=== PATIENT | male | born 1950 | race Two or more races ===

== ENCOUNTER 2018-05-09 23:01 | Emergency (ER) | payer MEDICARE, OTHER ==
[2018-05-10] MEDS ORDERED: NORMAL SALINE 1000 ML 1,000 ML IV ONE ×2 (00:07→01:32)
--- NOTE | 2018-05-10 00:11 | ER Document Report ---
ED General - General Chief Complaint: General Weakness Stated Complaint: LIGHT HEADED Time Seen by Provider: 05/09/18 23:51 Notes: Patient is a 67-year-old male that comes emergency department for chief complaint of possible heat exhaustion. He was outside working in the heat for several hours, states he became lightheaded, broke out into a sweat, and started vomiting. He only had one vomiting episode. He states he feels much better now. He denies any chest pain, abdominal pain, fever or chills. He denies shortness of breath. Past medical history of hypertension, hyperlipidemia, occasional alcohol, no other medical history reported. TRAVEL OUTSIDE OF THE [place] IN LAST 30 DAYS: No - Related Data Allergies/Adverse Reactions: No Known Allergies Allergy (Unverified 05/09/18 23:04) Past Medical History - General Information source: Patient - Social History Smoking Status: Never Smoker Frequency of alcohol use: Occasional Drug Abuse: None Lives with: Family Family History: Reviewed & Not Pertinent - Past Medical History Cardiac Medical History: Reports: Hx Hypercholesterolemia, Hx Hypertension - Immunizations Hx Diphtheria, Pertussis, Tetanus Vaccination: Yes Review of Systems - Review of Systems Constitutional: See HPI EENT: No symptoms reported Cardiovascular: See HPI Respiratory: No symptoms reported Gastrointestinal: See HPI Genitourinary: No symptoms reported Male Genitourinary: No symptoms reported Musculoskeletal: No symptoms reported Skin: No symptoms reported Hematologic/Lymphatic: No symptoms reported Neurological/Psychological: No symptoms reported Physical Exam - Vital signs Vitals: Temp Pulse Resp BP Pulse Ox 98.6 F 92 20 150/83 H 96 05/09/18 23:17 05/09/18 23:17 05/09/18 23:17 05/09/18 23:17 05/09/18 23:17 - Notes Notes: GENERAL: Alert, interacts well. No acute distress. HEAD: Normocephalic, atraumatic. EYES: Pupils equal, round, and reactive to light. Extraocular movements intact. ENT: Oral mucosa dry, tongue midline. NECK: Full range of motion. Supple. Trachea midline. LUNGS: Clear to auscultation bilaterally, no wheezes, rales, or rhonchi. No respiratory distress. HEART: Regular rate and rhythm. No murmur ABDOMEN: Soft, non-tender. Non-distended. Bowel sounds present in all 4 quadrants. EXTREMITIES: Moves all 4 extremities spontaneously. No edema, normal radial and dorsalis pedis pulses bilaterally. No cyanosis. BACK: no cervical, thoracic, lumbar midline tenderness. No saddle anesthesia, normal distal neurovascular exam. NEUROLOGICAL: Alert and oriented x3. Normal speech. [cranial nerves II through XII grossly intact]. PSYCH: Normal affect, normal mood. SKIN: Very tanned Course - Re-evaluation Re-evalutation: EKG does not show inverted T waves or ST segment changes in consecutive leads. CBC shows leukocytosis, bandemia. Chemistry shows low bicarbonate, elevated CK. Patient was given two liters of normal saline for rehydration. Vital signs are unremarkable. Patient smiling, well-appearing, states that even though he was vomiting earlier and got overheated now great. Troponin is not elevated. Labs trended, shows improved white blood cell count, improved bandemia count, improved bicarbonate. Urinalysis unremarkable. Patient is asking to leave. Patient [facility] they both were overworked and out in the heat per patient, this is suggestive that his symptoms were from heat exhaustion and dehydration, patient requesting discharge. I discussed details with patient, discussed follow-up, discussed return precautions, discussed with Dr. Loco. Patient stable at time of discharge. - Vital Signs Vital signs: Temp Pulse Resp BP Pulse Ox 97.7 F 64 16 142/89 H 98 05/10/18 05:43 05/10/18 05:43 05/10/18 05:43 05/10/18 05:43 05/10/18 05:43 - Laboratory Result Diagrams: 05/10/18 03:10 05/10/18 03:10 Laboratory results interpreted by me: 05/10/18 05/10/18 05/10/18 00:42 00:42 03:10 WBC 20.4 H 17.5 H Seg Neuts % (Manual) 84 H Band Neutrophils % 15 H 9 H Lymphocytes % (Manual) 2 L 1 L Abs Neuts (Manual) 17.3 H 16.3 H Abs Lymphs (Manual) 0.4 L 0.2 L Abs Monocytes (Manual) 2.7 H Chloride 108 H Carbon Dioxide 20 L BUN 22 H Glucose 114 H Creatine Kinase 543 H Urine Blood 05/10/18 05/10/18 03:10 04:45 WBC Seg Neuts % (Manual) Band Neutrophils % Lymphocytes % (Manual) Abs Neuts (Manual) Abs Lymphs (Manual) Abs Monocytes (Manual) Chloride 110 H Carbon Dioxide 21 L BUN 21 H Glucose 112 H Creatine Kinase 484 H Urine Blood SMALL H Discharge - Discharge Clinical Impression: Dehydration Heat exhaustion Qualifiers: Encounter type: initial encounter Qualified Code(s): T67.5XXA - Heat exhaustion , unspecified, initial encounter Condition: Stable Disposition: HOME, SELF-CARE Additional Instructions: Your workup shows improving blood chemistry after rehydration, continue to rehydrate at home after your heat exhaustion symptoms tonight. Rest. Follow- up with primary care. Return if you worsen including returned vomiting, pain in her abdomen, fever, passing out, or any other concerning symptoms. Forms: Return to Work Referrals: LOCAL,NO [Primary Care Provider] - Follow up as needed
[2018-05-10 00:54] LABS: HEMOGLOBIN 15.4 g/dL (13.5-17.0); MEAN CORPUSCULAR HEMOGLOBIN 30.2 pg (27.0-33.4); MEAN CORPUSCULAR HGB CONC 33.4 g/dL (32.0-36.0); MEAN CORPUSCULAR VOLUME 90 fl (80-97); PLATELET COUNT 226 10^3/uL (150-450); WHITE BLOOD COUNT 20.4 10^3/uL (4.0-10.5)
[2018-05-10 01:20] LABS: ABSOLUTE LYMPHOCYTES# (MANUAL) 0.4 10^3/uL (0.5-4.7); ABSOLUTE MONOCYTES # (MANUAL) 2.7 10^3/uL (0.1-1.4); ABSOLUTE NEUTROPHILS# (MANUAL) 17.3 10^3/uL (1.7-8.2); BASOPHILS % (MANUAL) 0 % (0-2); EOSINOPHILS % (MANUAL) 0 % (0-6); LYMPHOCYTES % (MANUAL) 2 % (13-45); MONOCYTES % (MANUAL) 13 % (3-13); SEGMENTED NEUTROPHILS % (MAN) 70 % (42-78); TOTAL CELLS COUNTED 100
[2018-05-10 01:21] LABS: ALANINE AMINOTRANSFERASE 28 U/L (21-72); ALBUMIN 4.3 g/dL (3.5-5.0); ALKALINE PHOSPHATASE 64 U/L (38-126); ANION GAP 15 (5-19); ASPARTATE AMINO TRANSFERASE 31 U/L (17-59); BILIRUBIN,DIRECT 0.3 mg/dL (0.0-0.4); BILIRUBIN,TOTAL 0.5 mg/dL (0.2-1.3); BLOOD UREA NITROGEN 22 mg/dL (7-20); CALCIUM 9.4 mg/dL (8.4-10.2); CARBON DIOXIDE 20 mmol/L (22-30); CHLORIDE 108 mmol/L (98-107); CREATINE KINASE 543 U/L (55-170); GLUCOSE 114 mg/dL (75-110); POTASSIUM 4.4 mmol/L (3.6-5.0); SODIUM 143.3 mmol/L (137-145)
[2018-05-10 01:23] LABS: RBC MORPHOLOGY COMMENT NORMO-CYTIC/CHROMIC
[2018-05-10 01:24] LABS: PLATELET COMMENT ADEQUATE
[2018-05-10 01:25] LABS: BAND NEUTROPHILS % (MANUAL) 15 % (3-5)
[2018-05-10 03:29] LABS: HEMATOCRIT 43.5 % (37.9-51.0); HEMOGLOBIN 14.6 g/dL (13.5-17.0); MEAN CORPUSCULAR HGB CONC 33.6 g/dL (32.0-36.0); MEAN CORPUSCULAR VOLUME 92 fl (80-97); PLATELET COUNT 221 10^3/uL (150-450); RED BLOOD COUNT 4.71 10^6/uL (4.35-5.55); RED CELL DISTRIBUTION WIDTH 13.1 % (11.5-14.0); WHITE BLOOD COUNT 17.5 10^3/uL (4.0-10.5)
[2018-05-10 03:48] LABS: ABSOLUTE LYMPHOCYTES# (MANUAL) 0.2 10^3/uL (0.5-4.7); ABSOLUTE MONOCYTES # (MANUAL) 0.9 10^3/uL (0.1-1.4); ABSOLUTE NEUTROPHILS# (MANUAL) 16.3 10^3/uL (1.7-8.2); BAND NEUTROPHILS % (MANUAL) 9 % (3-5); BASOPHILS % (MANUAL) 0 % (0-2); EOSINOPHILS % (MANUAL) 1 % (0-6); LYMPHOCYTES % (MANUAL) 1 % (13-45); MONOCYTES % (MANUAL) 5 % (3-13); SEGMENTED NEUTROPHILS % (MAN) 84 % (42-78); TOTAL CELLS COUNTED 100
[2018-05-10 03:50] LABS: PLATELET COMMENT ADEQUATE; RBC MORPHOLOGY COMMENT NORMO-CYTIC/CHROMIC
[2018-05-10 03:55] LABS: ANION GAP 12 (5-19); BLOOD UREA NITROGEN 21 mg/dL (7-20); CALCIUM 8.6 mg/dL (8.4-10.2); CARBON DIOXIDE 21 mmol/L (22-30); CHLORIDE 110 mmol/L (98-107); CREATINE KINASE 484 U/L (55-170); GLUCOSE 112 mg/dL (75-110); SODIUM 143.4 mmol/L (137-145)
[2018-05-10 05:00] LABS: APPEARANCE,URINE CLEAR; BILIRUBIN,URINE NEGATIVE (NEGATIVE); COLOR,URINE YELLOW; GLUCOSE, URINE NEGATIVE (NEGATIVE); KETONES,URINE NEGATIVE (NEGATIVE); LEUKOCYTE ESTERASE,URINE NEGATIVE (NEGATIVE); NITRITE,URINE NEGATIVE (NEGATIVE); PROTEIN,URINE NEGATIVE (NEGATIVE); URINE SPECIFIC GRAVITY 1.013; UROBILINOGEN,URINE NEGATIVE mg/dL (<2.0)
[2018-05-10 05:45] VITALS: BP 142/89
--- NOTE | 2018-05-10 07:46 | EKG REPORT ---
SEVERITY:- BORDERLINE ECG - SINUS RHYTHM BORDERLINE T ABNORMALITIES, INFERIOR LEADS : Confirmed by: Jose Manuel Wood MD 10-May-2018 07:45:49
[2018-05-11 08:23] LABS: PATH REVIEW PATHOLOGIST REVIEWED
== END 2018-05-10 05:45 | disposition home or self-care (01) ==
LOC: ER 23:01
DX: T67.5XXA Heat exhaustion, unspecified, initial encounter (principal); E86.0 Dehydration; X30.XXXA Exposure to excessive natural heat, initial encounter; Y99.0 Civilian activity done for income or pay; I10 Essential (primary) hypertension; R11.10 Vomiting, unspecified; D72.825 Bandemia
CPT/HCPCS: 93005; 99285; 96360; 96361; 36415; 82550; 85025; 80048; 80053; 81001; 84484; 93010; J7030